=== PATIENT | female | born 1970 | race African-American/Black ===

== ENCOUNTER 2021-02-21 01:24 | Emergency (ER) | payer MEDICAID, OTHER ==
[~2021-02-21] VITALS: Ht 172.7 cm; Wt 59.0 kg
[2021-02-21 01:32] VITALS: BP 138/72
== END 2021-02-21 02:30 | disposition left against medical advice (07) ==
LOC: ER 01:24
DX: R07.89 Other chest pain (principal); Z53.21 Procedure and treatment not carried out due to patient leaving prior to being seen by health care provider
CPT/HCPCS: 93005